=== PATIENT | female | born 1990 | race Caucasian/White ===

== ENCOUNTER → 2023-09-09 | Outpatient (CLI) | payer OTHER, SELFPAY ==
[2023-09-09 18:25] LABS: Ferritin 49 ng/mL (8-252)
[2023-09-15 13:07] LABS: Testosterone, % Free 3.15 % (0.50-2.80); Testosterone, Total 38 ng/dL (8-60); Thyroid Peroxidase AB 21 IU/mL (0-34); Zinc, Plasma or Serum 74 ug/dL (44-115)
== END | disposition home or self-care (01) ==
LOC: MTLAB 14:31
PROVIDERS: Referring Provider Physician Assistant; Visit Provider Physician Assistant
DX: L64.8 Other androgenic alopecia (principal); L30.9 Dermatitis, unspecified; M12.9 Arthropathy, unspecified
CPT/HCPCS: 36415; 82627; 82728; 84402; 84403; 84630; 86376; 82626